=== PATIENT | female | born 1950 | race Caucasian/White ===

== ENCOUNTER 2023-01-29 06:20 | Day surgery (SDC) | payer MEDICARE, OTHER ==
[2023-01-29] MEDS ORDERED: Sodium Chloride 0.9% 1,000 ML IV SCH (07:15)
[2023-01-29] MEDS ORDERED: fentaNYL 100 MCG/2 ML SDV ONE (07:27)
[2023-01-29] MEDS ORDERED: Propofol 200 MG/20 ML SDV ONE (07:27)
== END 2023-01-29 09:44 | disposition home or self-care (01) ==
LOC: JP.SDS 06:20
PROVIDERS: ATTEND Surgery
DX: R19.5 Other fecal abnormalities (principal); E78.5 Hyperlipidemia, unspecified; Z79.899 Other long term (current) drug therapy; Z91.048 Other nonmedicinal substance allergy status
CPT/HCPCS: 45378; J2704; J3010; J7030

== ENCOUNTER 2023-01-30 06:19 | Day surgery (SDC) | payer MEDICARE, OTHER ==
[2023-01-30] MEDS ORDERED: Sodium Chloride 0.9% 1,000 ML IV SCH (07:00)
[2023-01-30] MEDS ORDERED: fentaNYL 100 MCG/2 ML SDV ONE (07:05)
[2023-01-30] MEDS ORDERED: Propofol 200 MG/20 ML SDV ONE (07:05)
== END 2023-01-30 09:10 | disposition home or self-care (01) ==
LOC: JP.SDS 06:19
PROVIDERS: ATTEND Surgery
DX: Z12.11 Encounter for screening for malignant neoplasm of colon (principal); Z79.899 Other long term (current) drug therapy
CPT/HCPCS: J2704; J3010; J7030